=== PATIENT | female | born 1970 | race Caucasian/White ===

== ENCOUNTER 2018-05-01 09:31 | Day surgery (SDC) | payer OTHER ==
[2018-05-01] MEDS ORDERED: diphenhydrAMINE 25 MG CAP PO ONE (09:34)
[2018-05-01] MEDS ORDERED: DIAZEPAM 5 MG TAB PO ONE (09:34)
[2018-05-01] MEDS ORDERED: NS 1,000 ML IV ONE (09:34)
[2018-05-01] MEDS ORDERED: ceFAZolin 2 GM/DEXTROSE 100 ML IV ONE (09:34)
[2018-05-01] MEDS ORDERED: BACITRACIN IRRIGATION/NS 50,000 UNITS/1,000 ML BTL IRR ONE (09:34)
[2018-05-01 10:29] LABS: PLATELET COUNT 200 10^3/uL (150-400)
[2018-05-01 10:36] LABS: INR 1.03 (0.83-1.16); PROTIME(PATIENT) 13.7 SEC (12.0-15.0)
--- NOTE | 2018-05-01 11:00 | PDGENHP ---
History & Physical Chief Complaint: icd at [place] Relevant Physical Exam: s1s2 rrr cta ao3 Cardiorespiratory Assessment: icd is at [place]. plan generator change. indication : ventricular arrhythmia, family h/o sudden
[2018-05-01] MEDS ORDERED: LIDOCAINE 1% 300 MG/30 ML SDV ONE (11:01)
[2018-05-01] MEDS ORDERED: BUPIVACAINE 0.75% 10 ML SDV ONE (11:02)
[2018-05-01] MEDS ORDERED: MIDAZOLAM 2 MG/2 ML VIAL ONE ×2 (11:12→11:26)
[2018-05-01] MEDS ORDERED: PROPOFOL/EMULSION 500 MG/50 ML BOTTLE IV ONE (11:22)
[2018-05-01] MEDS ORDERED: fentaNYL 100 MCG/2 ML INJ ONE (11:22)
[2018-05-01] MEDS ORDERED: fentaNYL 100 MCG/2 ML INJ IVP PRN (12:04)
[2018-05-01] MEDS ORDERED: HYDROCODONE/APAP 5/325 TAB PO PRN (12:04)
[2018-05-01] MEDS ORDERED: ALBUTEROL 3 ML DEYVIAL IH PRN (12:04)
[2018-05-01] MEDS ORDERED: oxyCODONE IR 5 MG TAB PO PRN (12:04)
[2018-05-01] MEDS ORDERED: NALOXONE HCL 0.4 MG/ML INJ IVP PRN (12:04)
[2018-05-01] MEDS ORDERED: LR 500 ML IV PRN (12:04)
[2018-05-01] MEDS ORDERED: ACETAMINOPHEN 500 MG TAB PO PRN (12:04)
[2018-05-01] MEDS ORDERED: DEXAMETHASONE 4 MG/ML VIAL IVP PRN (12:04)
--- NOTE | 2018-05-01 12:04 | PDANEPAE ---
ANE Past Medical History - Pulmonary History Hx Oxygen in Use at Home: No ANE Review of Systems Review of Systems: ANE Patient History - Allergies Allergies/Adverse Reactions: No Known Allergies Allergy (Unverified 12/30/09 07:28) ANE Labs/Vital Signs - Labs Result Diagrams: 05/01/18 09:52 05/01/18 09:52 ANE Physical Exam - Airway Neck exam: FROM Mallampati Score: Class 1 Mouth exam: normal dental/mouth exam - Pulmonary Pulmonary: no respiratory distress, no rales or rhonchi, clear to auscultation - Cardiovascular Cardiovascular: regular rate and rhythym, no murmur, rub, or gallop - ASA Status ASA Status: III ANE Anesthesia Plan Anesthesia Plan: GA w LMA
--- NOTE | 2018-05-01 12:45 | EPPROC ---
Electrophysiology Procedure Note: PROCEDURE PERFORMED: 1. Explantation of an A-V Implantable Cardioverter Defibrillator 2. Implantation of an A-V Implantable Cardioverted Defibrillator INDICATION: ICD Generator at [facility] of [facility] PROCEDURE NOTE: Patient presented to the cardiac catheterization laboratory in a fasting, postabsorptive state. Dr. Clemons administered LMA. The L infraclavicular area was prepped and draped in the usual sterile fashion. Lidocaine plus bupivacaine was used for local anesthesia. Using a combination of blunt and sharp dissection and electrocautery, the dissection was carried down to the prepectoral fascia and the existing ICD pocket was opened. Device is retromuscular. The ICD generator was disconnected from the leads and the lead thresholds and impedance were checked. The ICD pocket was copiously irrigated with antibiotic solution. The pocket was again inspected for any bleeding. The leads were attached to the ICD securely. The ICD was inserted into the pocket and secured in place with a nonabsorbable suture. Defibrillation testing was not performed. The ICD pocket was closed in 4 layers with absorbable monocryl sutures and carmela. Appropriate dressing was applied. The patient left the cardiac catheterization laboratory in stable condition. Serial Numbers: 1. Implanted Device: Biotronik Ilivia 7 VRT ProMRI SN [id number] 2. Ventricular Lead: [employer]ron[employer] Kainox [id number] SN [id number] (12/15/1998) Stimulation Thresholds & Impedance Measurements: 1. Ventricular Lead R 10.7 mV 1 V 0.4 ms 591 ohm HV impedance 48 ohm Defibrillation testing: Not done Pacing Parameters: 1. Pacing mode: VVI 2. Lower rate: 40ppm Tachycardia therapy parameters: VF zone : Detection 250 bpm First therapy 40 Joule Subsequent therapies 40 Joule VT zone : Detection 194 bpm ATP x 5 Second therapy 40 Joule Subsequent therapies 40 Joule VT monitor zone at 167 bpm Patient Problems: Problems Problem Status Onset Ventricular arrhythmia Acute
--- NOTE | 2018-05-01 12:53 | POSTANESTH ---
Post Anesthetic Evaluation Cardiovascular Status: Normal, Stable, Similar to Pre-Op Cond Respiratory Status: Normal, Stable, Similar to Pre-op Cond. Level of Consciousness/Mental Status: Can Participate in Eval Pain Control: Adequate, Prn Tx Ordered Nausea/Vomiting Control: Adequate, Prn Tx Ordered Complications Possibly Related to Anesthesia: None Noted
--- NOTE | 2018-05-03 08:37 | CPEKG ---
Test Reason : OPEN Blood Pressure : / mmHG Vent. Rate : 058 BPM Atrial Rate : 058 BPM P-R Int : 201 ms QRS Dur : 092 ms QT Int : 444 ms P-R-T Axes : 054 020 033 degrees QTc Int : 437 ms Sinus rhythm Low voltage, extremity and precordial leads Confirmed by Matt Hagan ([id number]) on 05/03/2018 8:37:07 AM Referred By: Confirmed By:Matt Hagan
--- NOTE | 2018-05-03 08:38 | CPEKG ---
Test Reason : OPEN Blood Pressure : / mmHG Vent. Rate : 058 BPM Atrial Rate : 056 BPM P-R Int : 213 ms QRS Dur : 092 ms QT Int : 456 ms P-R-T Axes : 047 011 033 degrees QTc Int : 448 ms Sinus rhythm Prolonged IN interval Low voltage, extremity and precordial leads Confirmed by Matt Hagan ([id number]) on 05/03/2018 8:37:58 AM Referred By: Confirmed By:Matt Hagan
== END 2018-05-01 16:00 | disposition home or self-care (01) ==
LOC: FCATH 09:31
PROVIDERS: ATTEND Internal Medicine Cardiovascular Disease
DX: Z45.02 Encounter for adjustment and management of automatic implantable cardiac defibrillator (principal); F32.9 Major depressive disorder, single episode, unspecified; Z82.49 Family history of ischemic heart disease and other diseases of the circulatory system; Z80.3 Family history of malignant neoplasm of breast
CPT/HCPCS: C1722; J0690; J2250; J2704; J3010